=== PATIENT | male | born 1940 | race Caucasian/White ===

== ENCOUNTER 2022-05-17 13:22 | Observation (INO) | payer OTHER ==
[2022-05-17] VITALS (7 sets, daily range): BP systolic 146–169; BP diastolic 82–90
[~2022-05-17] VITALS: Ht 172.7 cm; Wt 99.8 kg
--- NOTE | 2022-05-17 14:06 | NUR ---
PT TO ROOM WITH SLOW GAIT
[2022-05-17 14:34] LABS: ALBUMIN 3.8 g/dL (3.2-5.0); ALKALINE PHOSPHATASE 51 u/l (38-126); ANION GAP 11 (6-22 (CALC)); BILIRUBIN, TOTAL 0.9 mg/dL (0.0-1.4); BUN 21 mg/dL (8-23); BUN/CREATININE RATIO 31 (12-20 (CALC)); CARBON DIOXIDE 29 mmol/l (22-30); CHLORIDE 103 mmol/l (95-108); CREATININE 0.7 mg/dL (0.7-1.3); GFR FOR AFR.AMER. > 60 ML/MIN (>=60 (CALC)); GFR OTHER RACES > 60 ML/MIN (>=60 (CALC)); HEMOGLOBIN 11.3 g/dl (14.0-18.0); IMMATURE GRANULOCYTES 0.1 % (0.0-5.0); MEAN CORPUSCULAR HGB CONC 32.3 g/dL CAL (32.0-36.0); NEUT# 5.24 thou/uL (1.82-7.42); POTASSIUM 3.5 mmol/l (3.5-5.1); RED BLOOD COUNT 3.89 mill/uL (4.70-6.10); RED CELL DISTRI WIDTH 13.8 % (11.5-15.5); SGOT/AST 23 u/l (19-48); SODIUM 139 mmol/l (137-146); TOTAL PROTEIN 6.8 g/dL (6.3-8.2)
--- NOTE | 2022-05-17 15:35 | NUR ---
Reassessment of patient completed. No distress noted.
--- NOTE | 2022-05-17 16:07 | NUR ---
IV ANTIBIOTICS INFUSING, WAITING ON DISPO
--- NOTE | 2022-05-17 17:50 | NUR ---
Admission Note Report Given to: LEIF VALERA Transported by: Wheelchair X Stretcher Transported with: X Nurse Transporter X Patent IV O2 Quarry Extraction Worker Location: ICU X [facility]
--- NOTE | 2022-05-17 17:50 | NUR ---
PT ADMITTED TO ROOM 267, DID PT BELONGING LIST AND GAVE REPORT TO LEIF GAGE.
--- NOTE | 2022-05-17 18:26 | NUR ---
PT ARRIVED TO ND VIA STRECTHER. A/OX3 ASSESMENT AND VS COMPLETED. HEART RHYTHM NORMAL REPSIRATIONS EVEN AND UNLABORED. BOWEL SOUNDS ACTIVE. PT REDNESS TO LEFT HAND CELLULITUS . IV NOTED AND FLUSHED 20G RAC. PT MED AT BEDSIDE . EDUCATED PT TO RELEASE MED FOR PHARMACY. PT INDICATED UNDERSTANDING PT AMBULATORY . FALL RISK . EDUCATED PT ORDER MANAGER LIGHT USE. PT NOT ON TELE. PT REQUESTED FOOD. DIETARY INFORMED . ALLS AFETY PRECAUTIONS IN PLACE. CALL LGIHT IN REACH
--- NOTE | 2022-05-17 19:45 | NUR ---
PATIENT RESTING IN BED. ALERT AND ORIENTED. ABLE TO MAKE NEEDS KNOWN. DENIES ANY PAIN TO LEFT HAND. LEFT HEAND REMAINS EDEMATOUS AND RED, SLIGHTLY WARM TO TOUCH. ENCOURAGED PATIENT TO ELEVATED EXTREMITY. NO SIGNS OF DISTRESS. ASSESSMENT COMPLETE. BED REMAINS IN LOW POSITION. CALL MELVIN IN REACH.
--- NOTE | 2022-05-18 00:47 | NUR ---
PATIENT RESTING IN BED ON HIS LEFT SIDE. NO SIGNS OF DISTRESS. NO COMPLAINTS OF PAIN TO LEFT HAND. PATIENT REMAINS ON IV ZOSYN. TOLERATING WELL. BED REMAINS IN LOW POSITION. CALL MELVIN IN REACH.
[2022-05-18 03:32] VITALS: BP 117/69
--- NOTE | 2022-05-18 04:43 | NUR ---
PATIENT LAYING ON HIS LEFT SIDE. NO SIGNS OF PAIN OR DISTRESS NOTED. PATIENT REMAINS ALERT AND ORIENTED. BED REMAINS IN LOW POSITION. CALL MELVIN ACTIVE AND IN REACH.
[2022-05-18 05:33] LABS: HEMATOCRIT 32.5 % (39.0-50.0); HEMOGLOBIN 10.6 g/dl (14.0-18.0); IMMATURE GRANULOCYTES 0.2 % (0.0-5.0); MEAN CELL VOLUME 90.5 fL CALC (80.0-100.0); MEAN CORPUSCULAR HGB 29.5 pG CALC (26.0-32.0); MEAN CORPUSCULAR HGB CONC 32.6 g/dL CAL (32.0-36.0); NEUT# 4.22 thou/uL (1.82-7.42); RED BLOOD COUNT 3.59 mill/uL (4.70-6.10); RED CELL DISTRI WIDTH 13.9 % (11.5-15.5)
[2022-05-18 06:06] LABS: ALKALINE PHOSPHATASE 43 u/l (38-126); ANION GAP 8 (6-22 (CALC)); BILIRUBIN, TOTAL 0.8 mg/dL (0.0-1.4); BUN 17 mg/dL (8-23); BUN/CREATININE RATIO 24 (12-20 (CALC)); CARBON DIOXIDE 29 mmol/l (22-30); CHLORIDE 108 mmol/l (95-108); CREATININE 0.7 mg/dL (0.7-1.3); GFR FOR AFR.AMER. > 60 ML/MIN (>=60 (CALC)); GFR OTHER RACES > 60 ML/MIN (>=60 (CALC)); POTASSIUM 3.7 mmol/l (3.5-5.1); SGOT/AST 19 u/l (19-48); SODIUM 142 mmol/l (137-146)
[2022-05-18 06:26] LABS: ALBUMIN 2.9 g/dL (3.2-5.0); TOTAL PROTEIN 5.3 g/dL (6.3-8.2)
[2022-05-18 06:55] VITALS: BP 148/79
[2022-05-18 06:59] VITALS: BP 148/79
--- NOTE | 2022-05-18 08:20 | NUR ---
PT SITTING ON BED HIGH FOWLERS; A&O X3. EVEN AND UNLABORED RESPIRATIONS; CLEAR LUNG SOUNDS UPON AUSCULTATION. IV SITE HEALTHY AND PATENT. ACTIVE BOWEL SOUNDS X4 QUADRANTS. REDNESS AND SWELLING NOTED ON LEFT HAND. SAFETY PRECAUTIONS IN PLACE WITH CALL LIGHT IN REACH.
[2022-05-18] MEDS ORDERED: ABIRATERONE AC250 MG PO (11:39)
[2022-05-18] MEDS ORDERED: WELLBUTRIN XL150 MG PO (11:39)
[2022-05-18] MEDS ORDERED: BUSPIRONE10 MG PO (11:40)
[2022-05-18] MEDS ORDERED: CALCIUM CARB500 MG PO (11:41)
[2022-05-18] MEDS ORDERED: VITAMIN D31000 UNI1 PO (11:43)
[2022-05-18] MEDS ORDERED: ANTI-FUNGAL12 EX (11:44)
[2022-05-18] MEDS ORDERED: DULOXETINE HCL60 MG PO (11:44)
[2022-05-18] MEDS ORDERED: FUROSEMIDE20 MG PO (11:45)
[2022-05-18] MEDS ORDERED: MIRALAX17 GM/SCOO PO (11:46)
[2022-05-18] MEDS ORDERED: OMEPRAZOLE DR20 MG PO (11:46)
[2022-05-18] MEDS ORDERED: TAMSULOSIN HCL0.4 MG PO (11:47)
[2022-05-18] MEDS ORDERED: POT CHLORIDE20 ME2 PO (11:47)
[2022-05-18] MEDS ORDERED: SYSTANE ULTR OU (11:49)
--- NOTE | 2022-05-18 12:20 | NUR ---
PT SITTING ON SIDE OF BED HAVING LUNCH. NO DISTRESS OR PAIN NOTED. NO NEEDS AT THE TIME. SAFETY PRECAUTIONS IN PLACE WITH CALL LIGHT IN REACH.
[2022-05-18 14:31] VITALS: BP 153/84
[2022-05-18 15:00] VITALS: BP 153/84
--- NOTE | 2022-05-18 16:25 | NUR ---
PT RESTING WITH EYES CLOSED. NO DISTRESS OR PAIN NOTED. NO NEEDS AT THE TIME. SAFETY PRECAUTIONS IN PLACE WITH CALL LIGHT IN REACH.
[2022-05-18 18:39] VITALS: BP 123/72
--- NOTE | 2022-05-18 20:30 | NUR ---
PATIENT RESTING IN BED ON HIS LEFT SIDE. ALERT AND ORIENTED. ABLE TO MAKE NEEDS KNOWN. ASSESSMENT COMPLETE. NO COMPLAINTS OF PAIN TO LEFT HAND. NO SIGNS OF DISTRESS. LEFT HANDS REMAINS EDEMATOUS AND SLIGHTLY DARK PINK.BED REMAINS IN LOW POSITION. REMINDED PATIENT TO ASK FOR ASSISTANCE WHEN NEEDED. CALL LIGHT IN REACH.
--- NOTE | 2022-05-19 00:46 | NUR ---
PATIENT REMAINS RESTING IN BED. NO COMPLAINTS VOICED. PATIENT REMAINS ENCOURAGED TO ELEVATE HAND. BED REMAINS IN LOW POSITION. CALL LIGHT IN REACH.
--- NOTE | 2022-05-19 04:00 | NUR ---
PATIENT REMAINS IN BED LAYING ON HIS SIDE. PATIENT PREFERS HIS LEFT SIDE. REMAINS ALERT. BED REMAINS IN LOW POSITION. CALL LIGHT IN REACH.
[2022-05-19 04:02] VITALS: BP 129/70
[2022-05-19 04:42] LABS: HEMATOCRIT 30.8 % (39.0-50.0); HEMOGLOBIN 10.1 g/dl (14.0-18.0); IMMATURE GRANULOCYTES 0.2 % (0.0-5.0); MEAN CELL VOLUME 89.5 fL CALC (80.0-100.0); MEAN CORPUSCULAR HGB 29.4 pG CALC (26.0-32.0); MEAN CORPUSCULAR HGB CONC 32.8 g/dL CAL (32.0-36.0); NEUT# 3.13 thou/uL (1.82-7.42); RED BLOOD COUNT 3.44 mill/uL (4.70-6.10); RED CELL DISTRI WIDTH 13.8 % (11.5-15.5)
[2022-05-19 05:00] LABS: ANION GAP 9 (6-22 (CALC)); BUN 14 mg/dL (8-23); BUN/CREATININE RATIO 22 (12-20 (CALC)); CARBON DIOXIDE 26 mmol/l (22-30); CHLORIDE 108 mmol/l (95-108); CREATININE 0.7 mg/dL (0.7-1.3); GFR FOR AFR.AMER. > 60 ML/MIN (>=60 (CALC)); GFR OTHER RACES > 60 ML/MIN (>=60 (CALC)); POTASSIUM 3.5 mmol/l (3.5-5.1); SODIUM 139 mmol/l (137-146)
--- NOTE | 2022-05-19 06:40 | NUR ---
RECEICED REPORT FROM ONEIL SMITH.
[2022-05-19 06:48] VITALS: BP 153/85
--- NOTE | 2022-05-19 08:15 | NUR ---
PT SITTING ON SIDE OF BED HAVING BREAKFAST: A&O X3. EVEN AND UNLABORED RESPIRATIONS; CLEAR LUNG SOUNDS UPON AUSCULTATION. FLUSHED IV: #20 RT AC, HEALTHY AND PATENT. REDNESS AND SWEALLING ON LEFT HAND NOTED: IMPROVED. SAFETY PRECAUTIONS IN PLACE WITH CALL LIGHT IN REACH.
--- NOTE | 2022-05-19 13:10 | NUR ---
PT RESTING WITH EYES CLOSED: PT WAKING UP UPON HOD CARRIER ENTERED ROOM. HANGING SCHEDULED ANTIBIOTIC PER EMAR. CLEANED SOCKS PROVIDED PER PT'S REQUEST. NO DISTRESS OR PAIN NOTED. SAFETY PRECAUTIONS IN PLACE WITH CALL LIGHT IN REACH.
[2022-05-19 14:53] VITALS: BP 115/59
--- NOTE | 2022-05-19 16:40 | NUR ---
PT SITTING ON SIDE OF BED. NO SIGNS OF DISTRESS NOTED. PT DENIES PAIN AT THE MOMENT. PT PROVIDED HOME MEDICATION TO BE SEND TO PHARMACY. IV SITE HEALTHY AND PATENT. PT REQUESTED TO GET A SHOWER, AIDE WILL ASSIST WITH SAME. SAFETY PRECAUTIONS IN PLACE WITH CALL LIGHT IN REACH.
[2022-05-19 19:02] VITALS: BP 127/73
--- NOTE | 2022-05-19 19:45 | NUR ---
PATIENT RESTING IN BED. ABLE TO MAKE NEEDS KNOWN. LIKES LAYING ON HIS SIDE. NO SIGNS OF DISTRESS NOTED. NO COMPLAINTS OF PAIN. ASSESSMENT COMPLETE. BED REMAINS IN LOW POSITION. CALL LIGHT IN REACH.
--- NOTE | 2022-05-20 00:48 | NUR ---
PATIENT RESTING IN BED ON HIS LEFT SIDE. NO SIGNS OF DISTRESS OR COMPLAINTS OF PAIN TO LEFT HAND. PATIENT IS ABLE TO OPEN LEFT HAND MORE. SITE APPEARS INFORMATION RECEPTIONIST WITH LESS REDNESS THEN DAY BEFORE. BED REMAINS IN LOW POSITION. CALL LIGHT IN REACH.
[2022-05-20 03:58] VITALS: BP 134/71
--- NOTE | 2022-05-20 04:15 | NUR ---
PATIENT REMAINS LAYING IN BED ON HIS LEFT SIDE. NO COMPLAINTS OF PAIN TO LEFT HAND. NO SIGNS OF DISTRESS NOTED. BED REMAINS IN LOW POSITION. CALL LIGHT IN REACH.
[2022-05-20 05:45] LABS: HEMATOCRIT 33.8 % (39.0-50.0); HEMOGLOBIN 11.1 g/dl (14.0-18.0); MEAN CELL VOLUME 88.9 fL CALC (80.0-100.0); MEAN CORPUSCULAR HGB 29.2 pG CALC (26.0-32.0); MEAN CORPUSCULAR HGB CONC 32.8 g/dL CAL (32.0-36.0); NEUT# 3.36 thou/uL (1.82-7.42); RED BLOOD COUNT 3.8 mill/uL (4.70-6.10)
[2022-05-20 06:05] LABS: ANION GAP 13 (6-22 (CALC)); BUN 13 mg/dL (8-23); BUN/CREATININE RATIO 18 (12-20 (CALC)); CARBON DIOXIDE 25 mmol/l (22-30); CHLORIDE 106 mmol/l (95-108); CREATININE 0.7 mg/dL (0.7-1.3); GFR FOR AFR.AMER. > 60 ML/MIN (>=60 (CALC)); GFR OTHER RACES > 60 ML/MIN (>=60 (CALC)); POTASSIUM 3.7 mmol/l (3.5-5.1); SODIUM 141 mmol/l (137-146)
--- NOTE | 2022-05-20 06:40 | NUR ---
RECEIVED REPORT FROM ONEIL SMITH.
[2022-05-20 07:11] VITALS: BP 156/78
--- NOTE | 2022-05-20 08:52 | NUR ---
PT SITTING ON BED: A&O X3. EVEN AND UNLABORED RESPIRATIONS; CLEAR LUNG SOUNDS UPON AUSCULTATION. IV SITE FLUSHED: #20 RT AC, HEALTHY AND PATENT. ACTIVE BOWEL SOUNDS X4 QUADRANTS. LEFT HAND SWELLING IMPROVED AND SOME REDNESS NOTED. PT STATES HE IS ABLE TO MOVE HIS FINGERS AND GRASP A CUP. SAFETY PRECAUTIONS IN PLACE WITH CALL LIGHT IN REACH.
[2022-05-20] MEDS ORDERED: LORTAB5 PO (11:47)
[2022-05-20] MEDS ORDERED: LEVAQUIN750 M1 PO (11:47)
--- NOTE | 2022-05-20 12:00 | NUR ---
PT ASSITED TO BATHROOM. PT BACK IN BED. NO DISTRESS OR PAIN NOTED. NO NEEDS AT THIS MOMENT. SAFETY PRECAUTIONS IN PLACE WITH CALL LIGHT IN REACH.
--- NOTE | 2022-05-20 13:32 | NUR ---
PT EDUCATED ON DC INSTRUCTIONS; PT SHOWED UNDERSTANDING. REMOVED IV: #20 RT AC, CATH INTACT UPON REMOVAL, PT TOLERATED WELL.
--- NOTE | 2022-05-20 14:58 | NUR ---
PT LEFT @ 1434. HOME MEDS KEPT IN PHARMACY GIVEN BACK TO PT. Discharge instructions given. Patient verbalizes understanding of same. Discharged in stable condition via Wheelchair to Home with staff. All belongings sent with pt.
== END 2022-05-20 14:34 | disposition home or self-care (01) | DRG 603 ==
LOC: ED 13:22 → ED-I 15:50 → ED 16:35 → MS2 16:35
PROVIDERS: Family Medicine; Internal Medicine; Nurse Practitioner; ADMIT Internal Medicine; ATTEND Internal Medicine
DX: L03.114 Cellulitis of left upper limb (principal); S60.512A Abrasion of left hand, initial encounter; I10 Essential (primary) hypertension; C61 Malignant neoplasm of prostate; W55.03XA Scratched by cat, initial encounter; Z79.899 Other long term (current) drug therapy; Z20.822 Contact with and (suspected) exposure to COVID-19
CPT/HCPCS: G0378; J1650

== ENCOUNTER 2022-06-20 20:56 | Emergency (ER) | payer OTHER ==
[~2022-06-20] VITALS: Ht 172.7 cm; Wt 98.0 kg
[~2022-06-20 20:56] MED LIST: ABIRATERONE AC250 MG PO; ANTI-FUNGAL12 EX; BUSPIRONE10 MG PO; CALCIUM CARB500 MG PO; DULOXETINE HCL60 MG PO; FUROSEMIDE20 MG PO; LEVAQUIN750 M1 PO; LORTAB5 PO; MIRALAX17 GM/SCOO PO; OMEPRAZOLE DR20 MG PO; POT CHLORIDE20 ME2 PO; SYSTANE ULTR OU; TAMSULOSIN HCL0.4 MG PO; VITAMIN D31000 UNI1 PO; WELLBUTRIN XL150 MG PO
[2022-06-20] MEDS ORDERED: AMOX/K CLAV875 M1 PO (21:40)
[2022-06-20 22:05] VITALS: BP 157/95
== END 2022-06-20 22:00 | disposition home or self-care (01) | DRG 605 ==
LOC: ED 20:56
PROC: 0HQGXZZ Repair Left Hand Skin, External Approach (ICD-10-PCS; principal; 2022-06-20)
DX: S61.452A Open bite of left hand, initial encounter (principal); S61.251A Open bite of left index finger without damage to nail, initial encounter; I10 Essential (primary) hypertension; W54.0XXA Bitten by dog, initial encounter; Y92.410 Unspecified street and highway as the place of occurrence of the external cause

== ENCOUNTER 2022-06-26 11:39 | Emergency (ER) | payer OTHER ==
[~2022-06-26] VITALS: Ht 172.7 cm; Wt 101.0 kg
[~2022-06-26 11:39] MED LIST changes: +AMOX/K CLAV875 M1 PO
[2022-06-26] MEDS ORDERED: AMOX/K CLAV875 M1 PO (12:58)
[2022-06-26 13:04] VITALS: BP 138/93
== END 2022-06-26 13:12 | disposition home or self-care (01) | DRG 951 ==
LOC: ED 11:39
DX: Z48.00 Encounter for change or removal of nonsurgical wound dressing (principal)

== ENCOUNTER 2022-07-07 14:36 | Emergency (ER) | payer OTHER ==
[~2022-07-07] VITALS: Ht 172.7 cm; Wt 102.0 kg
[2022-07-07 15:16] VITALS: BP 150/86
[2022-07-07 15:30] VITALS: BP 137/85
[2022-07-07 16:00] VITALS: BP 144/88
[2022-07-07] MEDS ORDERED: CEPHALEXIN500 MG PO (16:22)
[2022-07-07 16:31] VITALS: BP 139/89
[2022-07-07 16:32] VITALS: BP 139/89
== END 2022-07-07 17:03 | disposition home or self-care (01) | DRG 605 ==
LOC: ED 14:36
DX: S61.412A Laceration without foreign body of left hand, initial encounter (principal); W45.8XXA Other foreign body or object entering through skin, initial encounter; Z48.02 Encounter for removal of sutures

== ENCOUNTER 2022-07-30 11:12 | Emergency (ER) | payer OTHER ==
[2022-07-30] VITALS (9 sets, daily range): BP systolic 134–190; BP diastolic 80–114
[~2022-07-30] VITALS: Ht 172.7 cm; Wt 102.6 kg
[~2022-07-30 11:12] MED LIST changes: +CEPHALEXIN500 MG PO
[2022-07-30 13:18] LABS: HEMATOCRIT 35.4 % (39.0-50.0); HEMOGLOBIN 11.5 g/dl (14.0-18.0); IMMATURE GRANULOCYTES 0.1 % (0.0-5.0); MEAN CELL VOLUME 91.9 fL CALC (80.0-100.0); MEAN CORPUSCULAR HGB 29.9 pG CALC (26.0-32.0); MEAN CORPUSCULAR HGB CONC 32.5 g/dL CAL (32.0-36.0); NEUT# 5.31 thou/uL (1.82-7.42); RED BLOOD COUNT 3.85 mill/uL (4.70-6.10); RED CELL DISTRI WIDTH 14.4 % (11.5-15.5)
[2022-07-30 13:28] LABS: ALKALINE PHOSPHATASE 42 u/l (38-126); ANION GAP 10 (6-22 (CALC)); BILIRUBIN, TOTAL 0.6 mg/dL (0.0-1.4); BUN 24 mg/dL (8-23); BUN/CREATININE RATIO 33 (12-20 (CALC)); CARBON DIOXIDE 28 mmol/l (22-30); CHLORIDE 107 mmol/l (95-108); CREATININE 0.7 mg/dL (0.7-1.3); GFR FOR AFR.AMER. > 60 ML/MIN (>=60 (CALC)); GFR OTHER RACES > 60 ML/MIN (>=60 (CALC)); POTASSIUM 4.1 mmol/l (3.5-5.1); SGOT/AST 20 u/l (19-48); SODIUM 140 mmol/l (137-146); TOTAL PROTEIN 6.3 g/dL (6.3-8.2)
[2022-07-30 13:29] LABS: ALBUMIN 3.6 g/dL (3.2-5.0)
[2022-07-30] MEDS ORDERED: CVS SENNA8.6 MG PO (17:03)
[2022-07-30] MEDS ORDERED: HYDROCO/APAP1 TA9 PO (17:03)
[2022-07-30] MEDS ORDERED: METHOCARBAMOL500 MG PO (17:03)
[2022-07-30 17:25] LABS: URINE BILIRUBIN - DIPSTICK NEGATIVE (NEGATIVE); URINE BLOOD DIPSTICK SMALL (NEGATIVE); URINE COLOR YELLOW; URINE GLUCOSE - DIPSTICK NEGATIVE (NEGATIVE); URINE KETONE TRACE mg/dL (NEGATIVE); URINE LEUK ESTERASE NEGATIVE (NEGATIVE); URINE PROTEIN - DIPSTICK NEGATIVE (NEG-TRACE); URINE UROBILINOGEN - DIPSTICK 0.2 E.U./dL (0.2)
[2022-07-30 17:35] LABS: URINE NITRITE - DIPSTICK NEGATIVE (Negative)
[2022-07-30 17:41] LABS: URINE WBC 0-2 WBC/hpf (0-5)
== END 2022-07-30 17:23 | disposition home or self-care (01) | DRG 556 ==
LOC: ED 11:12
PROVIDERS: Nurse Practitioner
DX: M25.551 Pain in right hip (principal); K59.00 Constipation, unspecified; C79.51 Secondary malignant neoplasm of bone; C61 Malignant neoplasm of prostate; I10 Essential (primary) hypertension; Z79.899 Other long term (current) drug therapy
CPT/HCPCS: Q9967

== ENCOUNTER 2022-10-26 12:11 | Emergency (ER) | payer OTHER ==
[~2022-10-26] VITALS: Ht 172.7 cm; Wt 106.5 kg
[~2022-10-26 12:11] MED LIST changes: +CVS SENNA8.6 MG PO; +HYDROCO/APAP1 TA9 PO; +METHOCARBAMOL500 MG PO
[2022-10-26 13:10] LABS: BASO% 0.9 % (0-3); EOS% 2.4 % (0-8); HEMATOCRIT 39.3 % (39.0-50.0); HEMOGLOBIN 12.5 g/dl (14.0-18.0); IMMATURE GRANULOCYTES 0.2 % (0.0-5.0); LYMPH% 29.4 % (15-41); MEAN CELL VOLUME 90.8 fL CALC (80.0-100.0); MEAN CORPUSCULAR HGB 28.9 pG CALC (26.0-32.0); MEAN CORPUSCULAR HGB CONC 31.8 g/dL CAL (32.0-36.0); MONO% 6.2 % (2-13); NEUT% 60.9 % (42-76); RED BLOOD COUNT 4.33 mill/uL (4.70-6.10); RED CELL DISTRI WIDTH 13.8 % (11.5-15.5)
[2022-10-26 13:20] LABS: ALBUMIN 3.7 g/dL (3.2-5.0); ALKALINE PHOSPHATASE 42 u/l (38-126); ANION GAP 9 (6-22 (CALC)); BILIRUBIN, TOTAL 0.5 mg/dL (0.2-1.3); BUN 17 mg/dL (8-23); BUN/CREATININE RATIO 22 (12-20 (CALC)); CARBON DIOXIDE 27 mmol/l (22-30); CHLORIDE 104 mmol/l (95-108); CREATININE 0.8 mg/dL (0.7-1.3); GFR FOR AFR.AMER. > 60 ML/MIN (>=60 (CALC)); GFR OTHER RACES > 60 ML/MIN (>=60 (CALC)); LIPASE 14 u/l (23-300); SGOT/AST 20 u/l (19-48); SODIUM 136 mmol/l (137-146); TOTAL PROTEIN 6.5 g/dL (6.3-8.2)
[2022-10-26 13:42] LABS: URINE BLOOD DIPSTICK NEGATIVE (NEGATIVE); URINE COLOR YELLOW; URINE GLUCOSE - DIPSTICK NEGATIVE (NEGATIVE); URINE KETONE TRACE mg/dL (NEGATIVE); URINE LEUK ESTERASE TRACE (NEGATIVE); URINE PROTEIN - DIPSTICK NEGATIVE (NEG-TRACE); URINE SPECIFIC GRAVITY 1.025
[2022-10-26 13:48] LABS: URINE BILIRUBIN - DIPSTICK SMALL (NEGATIVE)
[2022-10-26 13:49] LABS: URINE NITRITE - DIPSTICK NEGATIVE (Negative)
[2022-10-26] MEDS ORDERED: GOLYTEL1 PO (14:42)
[2022-10-26 15:08] VITALS: BP 156/94
== END 2022-10-26 15:30 | disposition home or self-care (01) | DRG 392 ==
LOC: ED 12:11
PROVIDERS: Nurse Practitioner
DX: K59.00 Constipation, unspecified (principal); I10 Essential (primary) hypertension; Z85.46 Personal history of malignant neoplasm of prostate; Z85.830 Personal history of malignant neoplasm of bone

== ENCOUNTER 2023-05-11 13:25 | Emergency (ER) | payer OTHER ==
[2023-05-11] VITALS (16 sets, daily range): BP systolic 56–152; BP diastolic 37–94
[~2023-05-11] VITALS: Ht 167.6 cm; Wt 102.0 kg
[~2023-05-11 13:25] MED LIST changes: +GOLYTEL1 PO
[2023-05-11 17:25] LABS: URINE BILIRUBIN - DIPSTICK Negative (NEGATIVE); URINE BLOOD DIPSTICK Small (NEGATIVE); URINE GLUCOSE - DIPSTICK Negative (NEGATIVE); URINE KETONE Trace mg/dL (NEGATIVE); URINE NITRITE - DIPSTICK Negative (Negative); URINE PROTEIN - DIPSTICK 30 mg/dL (NEG-TRACE); URINE SPECIFIC GRAVITY 1.025; URINE UROBILINOGEN - DIPSTICK 0.2 E.U./dL (0.2)
[2023-05-11 17:29] LABS: URINE COLOR Yellow; URINE LEUK ESTERASE Small (NEGATIVE)
[2023-05-11] MEDS ORDERED: VOLTAREN75 MG PO (20:20)
[2023-05-11] MEDS ORDERED: TYLENOL # 31 TA1 PO (20:20)
== END 2023-05-11 21:30 | disposition home or self-care (01) | DRG 536 ==
LOC: ED 13:25
PROVIDERS: Family Medicine
DX: S32.9XXA Fracture of unspecified parts of lumbosacral spine and pelvis, initial encounter for closed fracture (principal); I10 Essential (primary) hypertension; Z85.46 Personal history of malignant neoplasm of prostate; Z85.830 Personal history of malignant neoplasm of bone; V18.0XXA Pedal cycle driver injured in noncollision transport accident in nontraffic accident, initial encounter

== ENCOUNTER 2023-06-16 17:00 | Observation (INO) | payer OTHER ==
[2023-06-16] VITALS (9 sets, daily range): BP systolic 106–133; BP diastolic 69–87
[~2023-06-16] VITALS: Ht 172.7 cm; Wt 95.0 kg
[~2023-06-16 17:00] MED LIST changes: +TYLENOL # 31 TA1 PO; +VOLTAREN75 MG PO
[2023-06-16 17:37] LABS: BASO% 0.5 % (0-3); EOS% 0.8 % (0-8); HEMATOCRIT 42.2 % (39.0-50.0); HEMOGLOBIN 13.7 g/dl (14.0-18.0); IMMATURE GRANULOCYTES 0.2 % (0.0-5.0); LYMPH% 15.3 % (15-41); MEAN CELL VOLUME 91.3 fL CALC (80.0-100.0); MEAN CORPUSCULAR HGB 29.7 pG CALC (26.0-32.0); MEAN CORPUSCULAR HGB CONC 32.5 g/dL CAL (32.0-36.0); MONO% 7.3 % (2-13); NEUT% 75.9 % (42-76); RED BLOOD COUNT 4.62 mill/uL (4.70-6.10); RED CELL DISTRI WIDTH 13.6 % (11.5-15.5)
[2023-06-16 17:43] LABS: ALBUMIN 4.1 g/dL (3.2-5.0); ALKALINE PHOSPHATASE 46 u/l (38-126); ANION GAP 16 (6-22 (CALC)); BILIRUBIN, TOTAL 0.8 mg/dL (0.2-1.3); BUN 9 mg/dL (8-23); BUN/CREATININE RATIO 10 (12-20 (CALC)); CARBON DIOXIDE 23 mmol/l (22-30); CHLORIDE 100 mmol/l (95-108); CREATININE 0.9 mg/dL (0.7-1.3); GFR FOR AFR.AMER. > 60 ML/MIN (>=60 (CALC)); GFR OTHER RACES > 60 ML/MIN (>=60 (CALC)); LIPASE < 10 u/l (23-300); POTASSIUM 3.3 mmol/l (3.5-5.1); SGOT/AST 29 u/l (19-48); SODIUM 136 mmol/l (137-146); TOTAL PROTEIN 7.2 g/dL (6.3-8.2)
[2023-06-16 19:23] LABS: URINE BLOOD DIPSTICK Trace-intact (NEGATIVE); URINE COLOR Yellow; URINE GLUCOSE - DIPSTICK Negative (NEGATIVE); URINE KETONE 15 mg/dL (NEGATIVE); URINE LEUK ESTERASE Small (NEGATIVE); URINE NITRITE - DIPSTICK Negative (Negative); URINE PROTEIN - DIPSTICK 100 mg/dL (NEG-TRACE); URINE SPECIFIC GRAVITY 1.025; URINE UROBILINOGEN - DIPSTICK 0.2 E.U./dL (0.2)
[2023-06-16 19:24] LABS: URINE CALCIUM OXALATE CRYSTALS FEW lpf
[2023-06-17 04:00] VITALS: BP 121/75
[2023-06-17 05:56] LABS: HEMATOCRIT 36.7 % (39.0-50.0); MEAN CELL VOLUME 91.8 fL CALC (80.0-100.0); MEAN CORPUSCULAR HGB CONC 32.7 g/dL CAL (32.0-36.0); RED CELL DISTRI WIDTH 13.5 % (11.5-15.5)
[2023-06-17 06:09] LABS: ALKALINE PHOSPHATASE 42 u/l (38-126); BILIRUBIN, TOTAL 0.7 mg/dL (0.2-1.3); BUN 12 mg/dL (8-23); BUN/CREATININE RATIO 15 (12-20 (CALC)); CARBON DIOXIDE 27 mmol/l (22-30); CHLORIDE 102 mmol/l (95-108); CREATININE 0.8 mg/dL (0.7-1.3); GFR FOR AFR.AMER. > 60 ML/MIN (>=60 (CALC)); GFR OTHER RACES > 60 ML/MIN (>=60 (CALC)); MAGNESIUM 2.1 mg/dL (1.6-2.3); SGOT/AST 19 u/l (19-48); SODIUM 135 mmol/l (137-146)
[2023-06-17 06:10] LABS: ALBUMIN 3.2 g/dL (3.2-5.0); ANION GAP 10 (6-22 (CALC)); POTASSIUM 4.2 mmol/l (3.5-5.1); TOTAL PROTEIN 5.7 g/dL (6.3-8.2)
[2023-06-17 07:03] VITALS: BP 99/64
[2023-06-17] MEDS ORDERED: BACTRIM DS1 TAB PO (12:40)
[2023-06-17] MEDS ORDERED: NYSTOP100000 UNI TOP (12:44)
== END 2023-06-17 13:37 | disposition home health service (06) | DRG 690 ==
LOC: ED 17:00 → ED-I 21:00 → ED 21:26 → MS2 21:27
PROVIDERS: Family Medicine; ADMIT Student in an Organized Health Care Education/Training Program; ATTEND Student in an Organized Health Care Education/Training Program
DX: N39.0 Urinary tract infection, site not specified (principal); C79.51 Secondary malignant neoplasm of bone; B37.49 Other urogenital candidiasis; B96.4 Proteus (mirabilis) (morganii) as the cause of diseases classified elsewhere; L89.152 Pressure ulcer of sacral region, stage 2; I10 Essential (primary) hypertension; R62.7 Adult failure to thrive; Z68.31 Body mass index [BMI] 31.0-31.9, adult; K59.00 Constipation, unspecified; C61 Malignant neoplasm of prostate; Z59.9 Problem related to housing and economic circumstances, unspecified; Z91.199 Patient's noncompliance with other medical treatment and regimen due to unspecified reason
CPT/HCPCS: Q9967

== ENCOUNTER 2024-03-31 11:06 | Observation (INO) | payer OTHER ==
[~2024-03-31] VITALS: Ht 172.7 cm; Wt 90.0 kg
[2024-03-31] VITALS (20 sets, daily range): BP systolic 75–166; BP diastolic 54–96
[~2024-03-31 11:06] MED LIST changes: +BACTRIM DS1 TAB PO; +CONSTULOSE10 GM/15 M PO; +NYSTOP100000 UNI TOP; +ONDANSETRON4 MG PO
[2024-03-31] MEDS ORDERED: SODIUM CHLORIDE 0.9% 1,000 ML IV ONE (11:20)
[2024-03-31 11:34] LABS: BASO% 0.2 % (0-3); EOS% 1.4 % (0-8); HEMATOCRIT 34.3 % (39.0-50.0); IMMATURE GRANULOCYTES 0.3 % (0.0-5.0); LYMPH% 16.6 % (15-41); MEAN CELL VOLUME 91.2 fL CALC (80.0-100.0); MEAN CORPUSCULAR HGB 29.3 pG CALC (26.0-32.0); MEAN CORPUSCULAR HGB CONC 32.1 g/dL CAL (32.0-36.0); NEUT# 6.52 thou/uL (1.82-7.42); NEUT% 75.5 % (42-76); RED BLOOD COUNT 3.76 mill/uL (4.70-6.10); RED CELL DISTRI WIDTH 13.5 % (11.5-15.5)
[2024-03-31 11:56] LABS: ALBUMIN 3.1 g/dL (3.2-5.0); BILIRUBIN, TOTAL 0.6 mg/dL (0.2-1.3); CREATININE 0.7 mg/dL (0.7-1.3); POTASSIUM 3.5 mmol/l (3.5-5.1); TOTAL PROTEIN 6.6 g/dL (6.3-8.2)
[2024-03-31 13:02] LABS: URINE BILIRUBIN - DIPSTICK Negative (NEGATIVE); URINE BLOOD DIPSTICK Trace-intact (NEGATIVE); URINE COLOR Dark yellow; URINE GLUCOSE - DIPSTICK Negative (NEGATIVE); URINE KETONE Negative (NEGATIVE); URINE LEUK ESTERASE Small (NEGATIVE); URINE NITRITE - DIPSTICK Positive (Negative); URINE PH 5.5 (4.5-8.0); URINE PROTEIN - DIPSTICK Negative (NEG-TRACE)
[2024-03-31 13:06] LABS: URINE BACTERIA MANY hpf; URINE MUCUS MODERATE hpf (NONE-FEW)
[2024-03-31] MEDS ORDERED: cefTRIAXone SODIUM 2 GM in SODIUM CHLORIDE 0.9% 100 ML IV ONE (13:30)
[2024-03-31] MEDS ORDERED: MAGNESIUM HYDROXIDE 30 ML UDC PO PRN (13:45)
[2024-03-31] MEDS ORDERED: ACETAMINOPHEN 325 MG/TAB PO PRN (13:45)
[2024-03-31] MEDS ORDERED: SODIUM CHLORIDE 0.9% 1,000 ML IV PRN (13:45)
[2024-03-31] MEDS ORDERED: ENOXAPARIN SODIUM 40 MG/0.4 ML SYR SC SCH (21:00)
[2024-04-01] VITALS (8 sets, daily range): BP systolic 109–140; BP diastolic 71–86
[2024-04-01 05:00] LABS: BASO% 0.2 % (0-3); EOS% 0.9 % (0-8); HEMATOCRIT 31.9 % (39.0-50.0); HEMOGLOBIN 10.4 g/dl (14.0-18.0); IMMATURE GRANULOCYTES 0.3 % (0.0-5.0); LYMPH% 16.9 % (15-41); MEAN CELL VOLUME 92.2 fL CALC (80.0-100.0); MEAN CORPUSCULAR HGB 30.1 pG CALC (26.0-32.0); MEAN CORPUSCULAR HGB CONC 32.6 g/dL CAL (32.0-36.0); MONO% 6.2 % (2-13); NEUT# 7.25 thou/uL (1.82-7.42); NEUT% 75.5 % (42-76); RED BLOOD COUNT 3.46 mill/uL (4.70-6.10); RED CELL DISTRI WIDTH 13.7 % (11.5-15.5)
[2024-04-01 05:14] LABS: ALBUMIN 2.6 g/dL (3.2-5.0); BILIRUBIN, TOTAL 0.5 mg/dL (0.2-1.3); CREATININE 0.7 mg/dL (0.7-1.3); MAGNESIUM 2.2 mg/dL (1.6-2.3); POTASSIUM 3.5 mmol/l (3.5-5.1)
[2024-04-01 05:17] LABS: TOTAL PROTEIN 5.2 g/dL (6.3-8.2)
[2024-04-01] MEDS ORDERED: TAMSULOSIN HCL 0.4 MG CAP PO SCH (08:00)
[2024-04-02] VITALS: BP 140/86
[2024-04-02 04:00] VITALS: BP 145/74
[2024-04-02 04:40] VITALS: BP 145/74
[2024-04-02 07:28] VITALS: BP 141/81
[2024-04-02 08:07] LABS: ALBUMIN 2.8 g/dL (3.2-5.0); BASO% 0.1 % (0-3); BILIRUBIN, TOTAL 0.5 mg/dL (0.2-1.3); CREATININE 0.5 mg/dL (0.7-1.3); EOS% 0.7 % (0-8); HEMATOCRIT 33.3 % (39.0-50.0); HEMOGLOBIN 10.6 g/dl (14.0-18.0); IMMATURE GRANULOCYTES 0.5 % (0.0-5.0); MAGNESIUM 2.1 mg/dL (1.6-2.3); MEAN CELL VOLUME 91.7 fL CALC (80.0-100.0); MEAN CORPUSCULAR HGB 29.2 pG CALC (26.0-32.0); MEAN CORPUSCULAR HGB CONC 31.8 g/dL CAL (32.0-36.0); MONO% 5.6 % (2-13); NEUT# 5.39 thou/uL (1.82-7.42); NEUT% 74.1 % (42-76); RED BLOOD COUNT 3.63 mill/uL (4.70-6.10); RED CELL DISTRI WIDTH 13.7 % (11.5-15.5); TOTAL PROTEIN 5.4 g/dL (6.3-8.2)
[2024-04-02] MEDS ORDERED: TAMSULOSIN0.4 MG PO (10:09)
[2024-04-02] MEDS ORDERED: CIPROFLOXACN500 MG PO (10:10)
[2024-04-02] MEDS ORDERED: FLORASTOR250 M1 PO (10:11)
[2024-04-02 10:42] VITALS: BP 127/74
[2024-04-02 15:09] VITALS: BP 139/87
== END 2024-04-02 18:00 | disposition home or self-care (01) | DRG 690 ==
LOC: ED 11:06 → ED-I 13:19 → ED 13:36 → MS2 13:37
PROVIDERS: Family Medicine; Nurse Practitioner Family; ADMIT Internal Medicine; ATTEND Internal Medicine
DX: N39.0 Urinary tract infection, site not specified (principal); B96.20 Unspecified Escherichia coli [E. coli] as the cause of diseases classified elsewhere; N41.9 Inflammatory disease of prostate, unspecified; R33.9 Retention of urine, unspecified; K21.9 Gastro-esophageal reflux disease without esophagitis; F41.9 Anxiety disorder, unspecified; G62.9 Polyneuropathy, unspecified; T44.6X6A Underdosing of alpha-adrenoreceptor antagonists, initial encounter; T50.916A Underdosing of multiple unspecified drugs, medicaments and biological substances, initial encounter; Z91.128 Patient's intentional underdosing of medication regimen for other reason; Z85.46 Personal history of malignant neoplasm of prostate
CPT/HCPCS: J1650